=== PATIENT | female | born 1945 | race Caucasian/White ===

== ENCOUNTER → 2016-04-07 | Day surgery (SDC) | payer MEDICARE ==
[~2016-04-07] MED LIST: BUPIVACAINE/EPINEPHRINE 0.25% 50 ML VIAL ONE; BUPIVACAINE/EPINEPHRINE 0.25% PF 10 ML VIAL ONE; KETOROLAC TROMETHAMINE 30 MG/ML (IVP) VIAL IV PUSH ONE; LACTATED RINGER'S 1000 ML INJ 1,000 ML ONE; LIDOCAINE 1%/EPINEPHrine 1:100,000 SOLN 20 ML VIAL ONE; MIDAZOLAM HCL 2 MG/2 ML VIAL ONE; PROPOFOL 200 MG/20 ML AMP IV ONE; ceFAZolin INJ 1,000 MG VIAL ONE
--- NOTE | 2016-04-07 15:48 | TN ---
cc: SATURNINO SENIOR DATE OF SURGERY: 04/07/2016 PREOPERATIVE DIAGNOSIS Right carpal tunnel syndrome POSTOPERATIVE DIAGNOSIS Right carpal tunnel syndrome. PROCEDURE Open right carpal tunnel release. SURGEON Saturnino Senior ANESTHESIA TIVA. ESTIMATED BLOOD LOSS Minimal. INDICATION This patient is a 70-year-old female with significant right hand pain with thenar wasting and evidence of carpal tunnel syndrome. The patient has bilateral disease. She presents for a staged first right carpal tunnel release. DETAILS OF PROCEDURE The patient was brought to the operating room and given limited sedation. The right arm was scrubbed with alcohol followed by Hibiclens followed by ChloraPrep and draped sterilely. Antibiotics were given within a one-hour time window. A timeout was done. Local anesthesia was utilized. The arm was exsanguinated, tourniquet inflated to 250 mmHg. A longitudinal incision was made in line with the flexed fourth ray. The palmar fascia was opened longitudinally. The transverse carpal ligament was opened followed by the flexor retinaculum. The median nerve was opened into the palm. The recurrent branch was identified and protected. The tourniquet was let down. Hemostasis was controlled. The wound was irrigated with normal saline. The wound was closed with interrupted 3-0 nylon in a mattress fashion. The patient was awakened and taken to Recovery in satisfactory condition. MD KIA Chairez/JEMIMA /1:39 PM /3:30 PM
== END | disposition home or self-care (01) ==
LOC: ESDC 11:59
PROVIDERS: ATTEND Orthopaedic Surgery Orthopaedic Surgery of the Spine
DX: G56.01 Carpal tunnel syndrome, right upper limb (principal)
CPT/HCPCS: 01810; 64721; J0690; J1885; J2250; J3010; J7120

== ENCOUNTER → 2016-05-26 | Day surgery (SDC) | payer MEDICARE ==
[~2016-05-26] MED LIST changes: -BUPIVACAINE/EPINEPHRINE 0.25% 50 ML VIAL ONE; -KETOROLAC TROMETHAMINE 30 MG/ML (IVP) VIAL IV PUSH ONE; -MIDAZOLAM HCL 2 MG/2 ML VIAL ONE; +ONDANSETRON HCL 4 MG/2 ML VIAL IV PUSH ONE; -PROPOFOL 200 MG/20 ML AMP IV ONE; +PROPOFOL 500 MG/50 ML BTL IV ONE
--- NOTE | 2016-05-26 14:41 | TN ---
cc: SATURNINO SENIOR DATE OF SURGERY: 05/26/2016. PREOPERATIVE DIAGNOSIS: Left carpal tunnel syndrome POSTOPERATIVE DIAGNOSIS: Left carpal tunnel syndrome. OPERATIVE PROCEDURE PERFORMED: Open left carpal tunnel release SURGEON: Saturnino Senior MD. ANESTHESIA: TIVA. ESTIMATED BLOOD LOSS: Minimal. INDICATIONS FOR THE PROCEDURE: This is a 70-year-old female with significant bilateral hand pain. She has had a right carpal tunnel release performed within the last two months and is doing well. She now presents for a staged left carpal tunnel release DESCRIPTION OF THE PROCEDURE IN DETAIL: The patient was brought into the operating room and anesthetized with limited sedation. The left arm was scrubbed with alcohol followed by Hibiclens followed by Chloraprep and draped sterilely. Antibiotics were given within a one hour time window and a time-out was done. Local anesthesia was used in the palm of the hand. After exsanguination the tourniquet was inflated to 250 mmHg. A longitudinal incision was made in line with the flexed fourth ray. The palmar fascia was opened longitudinally. The transverse carpal ligament was opened. The median nerve was identified and protected and opened into the palm. The flexor retinaculum was opened. The tourniquet was let down. Hemostasis was controlled. The recurrent branch of the nerve was identified and protected. The wound was irrigated copiously. Hemostasis was controlled with bipolar cautery and the wound was closed with interrupted 3-0 nylon in a mattress fashion. A sterile dressing was applied. The patient was awakened and taken to the recovery room in satisfactory condition. Saturnino Senior [place] [facility] [place] /2:13 PM /2:28 PM
== END | disposition home or self-care (01) ==
LOC: ESDC 11:51
PROVIDERS: ATTEND Orthopaedic Surgery Orthopaedic Surgery of the Spine
DX: G56.02 Carpal tunnel syndrome, left upper limb (principal)
CPT/HCPCS: 01810; 64721; J0690; J2405; J3010; J7120